=== PATIENT | female | born 1980 | race Caucasian/White ===

== ENCOUNTER 2022-04-09 15:41 | Emergency (ER) | payer OTHER ==
[2022-04-09] MEDS ORDERED: Lidocaine 1% w/Epinephrine 1:100K 20 ML VIAL ONE (16:22)
[2022-04-09] MEDS ORDERED: HYDROcodone/Acetaminophen 5/325 mg Tablet ONE (16:22)
[2022-04-09] MEDS ORDERED: Boostrix 0.5 ML (Tdap) VIAL ONE (16:22)
[2022-04-09] MEDS ORDERED: AMOXicillin 250 MG CAP ONE (16:23)
[2022-04-09] MEDS ORDERED: Bacitracin 1 PK ONE (17:24)
== END 2022-04-09 17:39 | disposition home or self-care (01) ==
LOC: BURERS 15:41
DX: S51.852A Open bite of left forearm, initial encounter (principal); Z23 Encounter for immunization; W54.0XXA Bitten by dog, initial encounter
CPT/HCPCS: 12002; 90471; 90715